=== PATIENT | female | born 1985 | race Caucasian/White ===

== ENCOUNTER → 2022-05-21 | Outpatient (CLI) | payer OTHER ==
--- NOTE | 2022-05-21 12:27 | Diagnostic Imaging Report ---
PROCEDURE: MRI right joint upper extremity without contrast. TECHNIQUE: Multiplanar, multisequence non contrast-enhanced MRI of the right upper extremity was accomplished. INDICATION: Wrist pain. COMPARISON: None available. FINDINGS: Bones: No bone marrow edema that would indicate contusion or occult fracture. Specifically, there is no scaphoid fracture. No avascular processes of the lunate. Articular cartilage throughout the wrist is normal. No erosions. Tendons: Flexor tendons are normal in position without tenosynovitis are intact. No abnormality of the flexor retinaculum. The extensor tendons are normally positioned without surrounding inflammatory change or tear. Intrinsic ligaments: The TFC articular disc is intact. The dorsal and volar bands of the scapholunate ligament are normal. Lunotriquetral ligament integrity cannot be adequately assessed without intra-articular contrast. Soft tissues: No T2 hyperintense cystic ganglion around the wrist. There is no abnormal mass effect on the median or ulnar nerves. IMPRESSION: 1. No stress fracture or bone contusion. The scaphoid is normal. 2. No soft tissue injury about the wrist. Dictated by: Dictated on workstation # [id number]
== END ==
LOC: RAD 09:41
PROVIDERS: ATTEND Nurse Practitioner
DX: S62.024A Nondisplaced fracture of middle third of navicular [scaphoid] bone of right wrist, initial encounter for closed fracture (principal); X58.XXXA Exposure to other specified factors, initial encounter
CPT/HCPCS: 73221